=== PATIENT | female | born 1980 | race Asian ===

== ENCOUNTER 2018-05-31 21:53 | Emergency (ER) | payer OTHER ==
[~2018-05-31] VITALS: Ht 157.5 cm; Wt 56.7 kg
[~2018-05-31 21:53] MED LIST: MIRA25TE PO
--- NOTE | 2018-05-31 22:08 | NUR ---
TO LOBBY A/W BED, AMBULATORY, VSS ERMD NOTED
[2018-05-31 22:11] VITALS: BP 106/70
--- NOTE | 2018-05-31 22:34 | NUR ---
PT TAKEN TO BED 2
--- NOTE | 2018-05-31 22:40 | NUR ---
38 Y/O F N/V FOR 2 WEEKS ON AND OFF, 7 WEEKS, LMP 10.30. SKIN IS INTACT, PINK/WARM/DRY; AAOX4, PERRL, WITH EVEN AND STEADY GAIT; LUNGS CLEAR BL, BREATHING UNLABORED; HR EVEN AND REGULAR, BL PERIPHERAL PULSES PRESENT; BS ACTIVE X4, NO TENDERNESS TO PALPATION, NO HEPATOSPLENOMEGALLY PALPATED, RESONANT TO PERCUSSION; PT STATES 5/10 PAIN AT THIS TIME; VSS; PATIENT POSITIONED FOR COMFORT; HOB ELEVATED; BEDRAILS UP X2; BED DOWN.
[2018-05-31] MEDS ORDERED: NACL 0.9% 1,000 ML IV ONE (23:20)
[2018-05-31] MEDS ORDERED: METOCLOPRAMIDE 10 MG/2 ML INJ VIAL IVP ONE (23:20)
[2018-05-31 23:54] LABS: BASOPHILS # (AUTO) 0.1 K/uL (0.00-0.22); BASOPHILS % (AUTO) 0.5 % (0.0-2.0); EOSINOPHILS % (AUTO) 6.7 % (0.0-4.0); HEMATOCRIT 37.4 % (36-48); HEMOGLOBIN 12.1 g/dL (12.0-16.0); LYMPHOCYTES # (AUTO) 2.6 K/uL (2.5-16.5); LYMPHOCYTES % (AUTO) 17.4 % (20.5-51.1); MEAN CORPUSCULAR HEMOGLOBIN 27 pg (27-31); MEAN CORPUSCULAR HGB CONC 32 g/dL (33-37); MONOCYTES # (AUTO) 1.1 K/uL (0.8-1.0); MONOCYTES % (AUTO) 7.7 % (1.7-9.3); NEUTROPHILS % (AUTO) 67.7 % (42.2-75.2); PLATELET COUNT (AUTO) 243 K/uL (140-450); RED BLOOD CELL COUNT(AUTO) 4.51 MIL/uL (4.20-5.40); RED CELL DISTRIBUTION WIDTH 14.2 % (11.6-13.7); WHITE BLOOD COUNT (AUTO) 14.7 K/uL (4.8-10.8)
--- NOTE | 2018-06-01 00:05 | NUR ---
pt expressed her feeling in regards to personal stress. pt stated that she just needs some time off of work and to rest. price calle made aware
[2018-06-01 00:10] LABS: ANION GAP 11.5 (8-16); CARBON DIOXIDE 28.2 mmol/L (21-32); CREATININE 0.5 mg/dL (0.6-1.3); POTASSIUM 3.7 mmol/L (3.5-5.1)
[2018-06-01 00:19] LABS: APPEARANCE,URINE CLEAR (CLEAR); BILIRUBIN,URINE NEGATIVE (NEGATIVE); BLOOD, URINE 1+ (NEGATIVE); COLOR,URINE YELLOW (YELLOW); LEUKOCYTE ESTERASE ,URINE 1+ (NEGATIVE); NITRITE, URINE NEGATIVE (NEGATIVE); UGLUCOSE NEGATIVE (NEGATIVE)
[2018-06-01 00:25] LABS: RBC,URINE 11-20 (MOD) /HPF (0-5)
[2018-06-01 01:08] VITALS: BP 106/70
--- NOTE | 2018-06-01 01:08 | NUR ---
Patient discharged with v/s stable. Written and verbal after care instructions given and explained. Patient alert, oriented and verbalized understanding of instructions. Ambulatory with steady gait. All questions addressed prior to discharge. ID band removed. Patient advised to follow up with PMD. Rx of ZOFRAN was given. Patient educated on indication of medication including possible reaction and side effects. Opportunity to ask questions provided and answered.
== END 2018-06-01 01:08 | disposition home or self-care (01) ==
LOC: MED 21:53
DX: O21.0 Mild hyperemesis gravidarum (principal); Z79.899 Other long term (current) drug therapy; Z3A.01 Less than 8 weeks gestation of pregnancy
CPT/HCPCS: 36415; 76801; 80048; 81001; 81025; 84702; 85025; 86900; 86901; 87086; 96361; 96374; 99284; J2765; J7030

== ENCOUNTER 2018-07-07 11:09 | Emergency (ER) | payer OTHER ==
[~2018-07-07] VITALS: Ht 162.6 cm; Wt 54.9 kg
[2018-07-07 11:30] VITALS: BP 125/56
--- NOTE | 2018-07-07 11:37 | NUR ---
PT AMBULATED TO ER BED 04
[2018-07-07] MEDS ORDERED: NACL 0.9% 1,000 ML IV ONE (11:45)
[2018-07-07] MEDS ORDERED: ONDANSETRON 4 MG/2 ML VIAL IVP ONE (11:45)
[2018-07-07] MEDS ORDERED: FOLIC ACID 1 MG TAB PO ONE (11:45)
[2018-07-07] MEDS ORDERED: LACTATED RINGERS 1,000 ML IV ONE (11:45)
[2018-07-07] MEDS ORDERED: PROMETHAZINE 25 MG/ML VIAL IM ONE (11:45)
--- NOTE | 2018-07-07 11:55 | NUR ---
38 YO F BIB SELF W/ C/O HYPEREMESIS GRAVIDARUM X 6 WEEKS. PT REPORTS THAT SHE IS 3 MONTHS 1 WEEK . PT STATES THAT THIS IS HER 7TH , W/ 2 LIVING CHILDREN. EACH HAS BEEN THIS BAD W/ N/V. 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 TRIED 4 DIFFERENT ANTIEMETICS W/O RELIEF. PT APPEARS VERY DRY/DEHYDRATED. MUCUOUS MEMBRANES AND LIPS CRACKED. AAOX4, AMBULATORY W/ STEADY GAIT. REPORTS ABD PAIN FROM VOMITING. CANNOT TOLERATE WATER. STATES SHE HAS VOMITED 5 TIMES THIS MORNING.
[2018-07-07 12:10] LABS: BASOPHILS % (AUTO) 0.2 % (0.0-2.0); EOSINOPHILS # (AUTO) 0.3 K/uL (0-0.4); EOSINOPHILS % (AUTO) 3.8 % (0.0-4.0); HEMATOCRIT 35.8 % (36-48); HEMOGLOBIN 11.7 g/dL (12.0-16.0); LYMPHOCYTES # (AUTO) 1.7 K/uL (2.5-16.5); LYMPHOCYTES % (AUTO) 19.2 % (20.5-51.1); MEAN CORPUSCULAR HEMOGLOBIN 27 pg (27-31); MEAN CORPUSCULAR HGB CONC 33 g/dL (33-37); MEAN CORPUSCULAR VOLUME 81.4 fL (80-94); MONOCYTES # (AUTO) 0.8 K/uL (0.8-1.0); NEUTROPHILS % (AUTO) 67.8 % (42.2-75.2); PLATELET COUNT (AUTO) 236 K/uL (140-450); RED CELL DISTRIBUTION WIDTH 13.2 % (11.6-13.7); WHITE BLOOD COUNT (AUTO) 8.8 K/uL (4.8-10.8)
--- NOTE | 2018-07-07 12:20 | NUR ---
PATIENT STATES SHE IS NOT FEELING NAUSEOUS ANYMORE BUT "HER BODY IS VERY TIRED". DR PATEL AWARE OF PATIENT CONDITION.
[2018-07-07] MEDS ORDERED: PREN-380 PO (12:25)
[2018-07-07 12:35] LABS: ALBUMIN 3.1 g/dL (3.4-5.0); AMYLASE 90 U/L (25-115); ANION GAP 12.4 (8-16); ASPARTATE AMINOTRANSFERASE 26 U/L (15-37); CARBON DIOXIDE 26.6 mmol/L (21-32); CHLORIDE 102 mmol/L (98-107); CREATININE 0.5 mg/dL (0.6-1.3); GFR ARICAN-AMERICAN 178 mL/min (>90); GLUCOSE 90 mg/dL (74-106); LIPASE 208 U/L (73-393); MAGNESIUM 1.7 mg/dL (1.8-2.4); SODIUM SERUM 137 mmol/L (136-145); TOTAL BILIRUBIN 0.4 mg/dL (0.0-1.0); UREA NITROGEN, BLOOD 10 mg/dL (7-18)
[2018-07-07 12:47] LABS: ACETONE, SERUM NEGATIVE (NEGATIVE)
[2018-07-07 12:47] LABS: BILIRUBIN,URINE 1+ (NEGATIVE); COLOR,URINE YELLOW (YELLOW); LEUKOCYTE ESTERASE ,URINE TRACE (NEGATIVE); NITRITE, URINE NEGATIVE (NEGATIVE); PH,URINE 5.5 (5.0-9.0); UGLUCOSE NEGATIVE (NEGATIVE)
[2018-07-07 12:51] LABS: APPEARANCE,URINE TURBID (CLEAR)
[2018-07-07 12:53] LABS: RBC,URINE 0-5 (RARE) /HPF (0-5); WBC,URINE 0-5 (RARE) /HPF (0-5)
[2018-07-07 12:55] LABS: BLOOD, URINE 1+ (NEGATIVE); URINE AMORPHOUS URATE 1+ /HPF (None Seen)
--- NOTE | 2018-07-07 13:53 | NUR ---
PATIENT SLEEPING IN BED. NO STATED NEEDS AT THIS TIME
[2018-07-07 15:00] VITALS: BP 125/56
--- NOTE | 2018-07-07 15:01 | NUR ---
Patient discharged with v/s stable. Written and verbal after care instructions given and explained. Patient alert, oriented and verbalized understanding of instructions. Wheelchair assisted to lobby to wait for ride. All questions addressed prior to discharge. ID band removed. Patient advised to follow up with PMD. Rx of folic acid, cyproheptadine given. Patient educated on indication of medication including possible reaction and side effects. Opportunity to ask questions provided and answered.
== END 2018-07-07 15:01 | disposition home or self-care (01) ==
LOC: MED 11:09
DX: O21.0 Mild hyperemesis gravidarum (principal); Z3A.12 12 weeks gestation of pregnancy; Z79.899 Other long term (current) drug therapy
CPT/HCPCS: 36415; 80053; 81001; 82009; 82150; 83605; 83690; 83735; 85025; 96361; 96372; 96374; 99283; J2405; J2550; J7030

== ENCOUNTER 2018-10-31 18:24 | Inpatient (IN) | payer OTHER ==
[~2018-10-31] VITALS: Ht 152.4 cm; Wt 63.5 kg
[~2018-10-31 18:24] MED LIST changes: +GENTAMICIN 80 MG in DEXTROSE 5% 100 ML IV SCH; +PREN-380 PO
--- NOTE | 2018-10-31 18:32 | NUR ---
L&D NOTIFIED OF PT BEING WHEELCHAIRED OVER--->21 WKS IUP WITH LOWER ABDOMINAL CRAMPING PAIN---
[2018-10-31 20:17] LABS: BASOPHILS % (AUTO) 0.4 % (0.0-2.0); EOSINOPHILS # (AUTO) 0.6 K/uL (0-0.4); EOSINOPHILS % (AUTO) 5.9 % (0.0-4.0); HEMATOCRIT 32.4 % (36-48); HEMOGLOBIN 11.2 g/dL (12.0-16.0); LYMPHOCYTES # (AUTO) 1.9 K/uL (2.5-16.5); LYMPHOCYTES % (AUTO) 19.7 % (20.5-51.1); MEAN CORPUSCULAR HEMOGLOBIN 29 pg (27-31); MEAN CORPUSCULAR HGB CONC 35 g/dL (33-37); MEAN CORPUSCULAR VOLUME 83.6 fL (80-94); MONOCYTES # (AUTO) 0.7 K/uL (0.8-1.0); MONOCYTES % (AUTO) 7.6 % (1.7-9.3); NEUTROPHILS # (AUTO) 6.4 K/uL (1.8-7.7); NEUTROPHILS % (AUTO) 66.4 % (42.2-75.2); PLATELET COUNT (AUTO) 246 K/uL (140-450); RED BLOOD CELL COUNT(AUTO) 3.88 MIL/uL (4.20-5.40); RED CELL DISTRIBUTION WIDTH 14.9 % (11.6-13.7); WHITE BLOOD COUNT (AUTO) 9.6 K/uL (4.8-10.8)
[2018-10-31 20:26] LABS: BILIRUBIN,URINE NEGATIVE (NEGATIVE); BLOOD, URINE 3+ (NEGATIVE); LEUKOCYTE ESTERASE ,URINE NEGATIVE (NEGATIVE); NITRITE, URINE NEGATIVE (NEGATIVE); PH,URINE 7.5 (5.0-9.0); UGLUCOSE NEGATIVE (NEGATIVE)
[2018-10-31 20:35] LABS: APPEARANCE,URINE SLIGHTLY BLOODY (CLEAR); COLOR,URINE SLIGHT BLOODY (YELLOW)
[2018-10-31 20:40] LABS: RBC,URINE TOO NUMEROUS TO COUN /HPF (0-5)
[2018-10-31 20:41] LABS: WBC,URINE 0-5 /HPF (0-5)
[2018-10-31] MEDS ORDERED: GENTAMICIN PER PHARMACY MC ONE (20:50)
[2018-10-31] MEDS ORDERED: GENTAMICIN PER PHARMACY MC PRN (20:50)
[2018-10-31] MEDS: LACTATED RINGERS 1,000 ML IV SCH (21:14)
[2018-10-31] MEDS ORDERED: AMPICILLIN 2,000 MG VIAL ONE (21:19)
[2018-10-31] MEDS ORDERED: GENTAMICIN 80 MG/2 ML VIAL ONE (21:27)
[2018-10-31 21:56] LABS: ANION GAP 12.9 (8-16); CARBON DIOXIDE 25.4 mmol/L (21-32); CREATININE 0.6 mg/dL (0.6-1.3); POTASSIUM 4.3 mmol/L (3.5-5.1)
[2018-10-31 22:03] LABS: ALBUMIN 2.7 g/dL (3.4-5.0); TOTAL BILIRUBIN 0.2 mg/dL (0.0-1.0)
[2018-10-31] MEDS ORDERED: GENTAMICIN 120 MG in DEXTROSE 5% 100 ML IV SCH (23:00)
[2018-11-01] MEDS ORDERED: AMPICILLIN 2,000 MG VIAL ONE ×4 (00:47→13:26)
[2018-11-01] MEDS: AMPICILLIN 2,000 MG in NACL 0.9% 100 ML IV SCH ×3 (01:19→09:06)
[2018-11-01] MEDS: LACTATED RINGERS 1,000 ML IV SCH ×2 (02:40→08:41)
[2018-11-01] MEDS ORDERED: NALBUPHINE 10 MG/ML AMP IVP ONE (04:15)
[2018-11-01] MEDS ORDERED: NALBUPHINE 10 MG/ML AMP ONE (04:24)
[2018-11-01] MEDS ORDERED: GENTAMICIN 80 MG/2 ML VIAL ONE (05:09)
[2018-11-01] MEDS ORDERED: GENTAMICIN 80 MG in DEXTROSE 5% 100 ML IV SCH (06:30)
== END 2018-11-01 13:50 | disposition home or self-care (01) | DRG 566 ==
LOC: MED 18:24 → MLD 18:35 → OBSVTOIN 21:00
PROVIDERS: ADMIT Obstetrics & Gynecology; ATTEND Obstetrics & Gynecology
DX: O26.893 Other specified pregnancy related conditions, third trimester (principal); R10.9 Unspecified abdominal pain; Z3A.28 28 weeks gestation of pregnancy
CPT/HCPCS: G0378 ×2; 36415; 76805; 80053; 81001; 85025; J0290; J1580; J2300; J7060; J7120; Q0092